=== PATIENT | female | born 1990 | race Caucasian/White ===

== ENCOUNTER 2017-07-16 19:56 | Emergency (ER) | payer BC ==
[~2017-07-16] VITALS: Ht 157.5 cm; Wt 68.0 kg
[2017-07-16] MEDS ORDERED: SPIRONOLACTONE 50 MG TABLET (20:31)
[2017-07-16] MEDS ORDERED: NAPROXEN 500 MG TABLET (20:32)
[2017-07-16] MEDS ORDERED: CEPHALEXIN 500 MG CAPSULE (20:32)
[2017-07-16] MEDS ORDERED: IBUPROFEN 600 MG TABLET PO ONE (21:00)
[2017-07-16] MEDS ORDERED: HYDROCODONE/APAP 10-325 MG TABLET PO ONE (21:00)
--- NOTE | 2017-07-16 21:12 | NUR ---
Patient discharged to home in stable conditon. Written and verbal after care instructions given. Patient verbalizes understanding of instructions.
[2017-07-16] MEDS ORDERED: HYDROCODONE/APAP 10-325 MG TABLET ONE (21:16)
[2017-07-16] MEDS ORDERED: IBUPROFEN 600 MG TABLET ONE (21:16)
== END 2017-07-16 21:13 | disposition home or self-care (01) ==
LOC: ER 19:57
DX: I88.9 Nonspecific lymphadenitis, unspecified (principal)
CPT/HCPCS: A4663